=== PATIENT | female | born 1995 | race Hispanic/Latino ===

== ENCOUNTER 2018-04-14 23:56 | Emergency (ER) | payer MEDICAID, OTHER | END 2018-04-15 00:27 | disposition home or self-care (01) | LOC: EDH 23:56 | DX: M54.16 Radiculopathy, lumbar region (principal); L98.9 Disorder of the skin and subcutaneous tissue, unspecified; Z98.890 Other specified postprocedural states | CPT/HCPCS: 99281 ==

== ENCOUNTER 2018-10-22 00:08 | Emergency (ER) | payer MEDICAID, OTHER | END 2018-10-22 01:06 | disposition home or self-care (01) | LOC: EDH 00:08 | DX: O9A.212 Injury, poisoning and certain other consequences of external causes complicating pregnancy, second trimester (principal); S39.81XA Other specified injuries of abdomen, initial encounter; Z3A.15 15 weeks gestation of pregnancy; W01.0XXA Fall on same level from slipping, tripping and stumbling without subsequent striking against object, initial encounter; Y93.E5 Activity, floor mopping and cleaning; Y92.89 Other specified places as the place of occurrence of the external cause; Y99.8 Other external cause status | CPT/HCPCS: 99281 ==

== ENCOUNTER 2020-01-08 22:19 | Emergency (ER) | payer MEDICAID, OTHER ==
[2020-01-08 22:41] LABS: APPEARANCE,URINE Cloudy (CLEAR); BILIRUBIN,URINE Negative (NEGATIVE); COLOR,URINE Dark Yellow (YELLOW); GLUCOSE, URINE (UA) Negative (NEGATIVE); KETONES,URINE Trace mg/dL (NEGATIVE); LEUKOCYTE ESTERASE ,URINE Moderate (NEGATIVE); NITRATE,URINE Negative (NEGATIVE); OCCULT BLOOD,URINE Large (NEGATIVE); PROTEIN,URINE >=1000 mg/dL (NEGATIVE)
[2020-01-08 22:51] LABS: BACTERIA,URINE Few /HPF (None Seen); SQUAMOUS EPITHELIAL CELL,UR Moderate /HPF (0-2); WBC,URINE 26-50 /HPF (0-1)
[2020-01-08 22:52] LABS: MUCUS,URINE Few LPF (None Seen); RBC,URINE 51-100 /HPF (0-1)
[2020-01-08] MEDS ORDERED: ACETAMINOPHEN 325 MG TAB ONE (23:47)
[2020-01-09] MEDS ORDERED: CEFTRIAXONE SODIUM 500 MG VIAL ONE (00:45)
[2020-01-09] MEDS ORDERED: AZITHROMYCIN 250 MG TABLET PO ONE (00:45)
[2020-01-09] MEDS ORDERED: LIDOCAINE HCL-MPF 1% 2ML VIAL ONE (00:46)
== END 2020-01-09 01:33 | disposition home or self-care (01) ==
LOC: EDH 22:19
DX: N72 Inflammatory disease of cervix uteri (principal); N39.0 Urinary tract infection, site not specified; Z98.890 Other specified postprocedural states
CPT/HCPCS: 81001; 81025; 87077; 87088; 87186; 87210; 87486; 87797; 96372; 99283; J0696; J3490

== ENCOUNTER 2020-10-17 01:07 | Emergency (ER) | payer OTHER ==
[2020-10-17 02:20] LABS: APPEARANCE,URINE Clear (CLEAR); BILIRUBIN,URINE Negative (NEGATIVE); COLOR,URINE Yellow (YELLOW); GLUCOSE, URINE (UA) Negative (NEGATIVE); KETONES,URINE Negative (NEGATIVE); LEUKOCYTE ESTERASE ,URINE Trace (NEGATIVE); NITRATE,URINE Negative (NEGATIVE); OCCULT BLOOD,URINE Moderate (NEGATIVE); PROTEIN,URINE Negative (NEGATIVE)
[2020-10-17 02:23] LABS: HCG,QUAL RESULT NEGATIVE (NEGATIVE)
[2020-10-17 02:35] LABS: BACTERIA,URINE None Seen /HPF (None Seen); RBC,URINE None Seen /HPF (0-1); SQUAMOUS EPITHELIAL CELL,UR Moderate /HPF (0-2); WBC,URINE 0-1 /HPF (0-1)
[2020-10-18 18:09] LABS: CHLAMYDIA DNA N.A.AMPLIFY Negative (Negative)
== END 2020-10-17 03:46 | disposition home or self-care (01) ==
LOC: EDH 01:07
DX: N89.8 Other specified noninflammatory disorders of vagina (principal); N94.10 Unspecified dyspareunia; Z98.890 Other specified postprocedural states
CPT/HCPCS: 81001; 81025; 87210; 87486; 87797; 87880; 96372

== ENCOUNTER 2021-01-31 18:52 | Observation (INO) | payer MEDICAID, OTHER ==
[~2021-01-31] VITALS: Ht 172.7 cm; Wt 87.3 kg
[2021-01-31 22:59] LABS: BASOPHILS % (AUTO) 0.5 % (0.0-5.0); HEMATOCRIT 34.9 % (36-48); LYMPHOCYTES % (AUTO) 29.4 % (21.0-51.0); MEAN CORPUSCULAR HEMOGLOBIN 23.8 pg (27.0-33.0); MEAN CORPUSCULAR HGB CONC 30.7 g/dL (32.0-36.0); MEAN CORPUSCULAR VOLUME 77.6 fL (79-99); MONOCYTES % (AUTO) 6.7 % (3.0-13.0); NEUTROPHILS % (AUTO) 62.1 % (40.0-77.0); PLATELET COUNT (AUTO) 314 K/uL (130-400); RED CELL DISTRIBUTION WIDTH 16.5 % (11.0-15.5); WHITE BLOOD COUNT (AUTO) 9.4 K/uL (4.8-10.8)
[2021-01-31] MEDS ORDERED: CLINDAMYCIN 150 MG CAP PO ONE (23:00)
[2021-01-31] MEDS ORDERED: CLINDAMYCIN IVPB 600MG/50ML 50 ML IV ONE ×2 (23:00→23:36)
[2021-01-31] MEDS ORDERED: 0.9%NACL 1000ML 1,000 ML IV ONE ×2 (23:00→23:37)
[2021-01-31 23:06] LABS: CREATININE 0.6 mg/dL (0.5-1.5); POTASSIUM 3.6 mmol/L (3.5-5.1)
[2021-02-01] VITALS (17 sets, daily range): BP systolic 83–123; BP diastolic 34–84
[2021-02-01] MEDS ORDERED: ONDANSETRON 4MG INJ IVP PRN (07:30)
[2021-02-01] MEDS ORDERED: ACETAMINOPHEN 500 MG TABLET PO PRN (07:30)
[2021-02-01] MEDS: 0.9%NACL 1000ML 1,000 ML IV SCH ×2 (09:25→15:30)
[2021-02-01] MEDS: CLINDAMYCIN IVPB 600MG/50ML 50 ML IV SCH ×2 (09:26→16:14)
[2021-02-01] MEDS ORDERED: MIDAZOLAM HCL 1 MG/ML 2ML VIAL ONE (13:20)
[2021-02-01] MEDS ORDERED: PROPOFOL 10 MG/ML 20ML VIAL IV ONE ×2 (13:20→13:34)
[2021-02-01] MEDS ORDERED: FENTANYL CITRATE PF 50 MCG/1 ML 2ML VIAL ONE (13:20)
[2021-02-01] MEDS ORDERED: CEFAZOLIN SODIUM 1 GM VIAL ONE (13:30)
[2021-02-01] MEDS ORDERED: MEPERIDINE-PF 25 MG/ML SYG ONE (13:34)
[2021-02-01] MEDS ORDERED: SUCCINYLCHOLINE 200MG/10ML SYR ONE (13:49)
[2021-02-01] MEDS ORDERED: ONDANSETRON 4MG INJ ONE (13:49)
== END 2021-02-01 18:31 | disposition home or self-care (01) ==
LOC: EDH 18:52 → EDHIP 18:53 → 3CH 02-01 01:59
PROVIDERS: ADMIT Surgery Plastic and Reconstructive Surgery; ATTEND Surgery Plastic and Reconstructive Surgery
DX: S00.85XA Superficial foreign body of other part of head, initial encounter (principal); Z20.822 Contact with and (suspected) exposure to COVID-19; L03.211 Cellulitis of face; M79.5 Residual foreign body in soft tissue; W45.8XXA Other foreign body or object entering through skin, initial encounter; Y93.89 Activity, other specified; Y92.89 Other specified places as the place of occurrence of the external cause; Y99.8 Other external cause status
CPT/HCPCS: 10120; 36415 ×2; 70150; 80048; 84703; 85025; 87635; 96365; 96366 ×2; 99284; A6207; G0378 ×19; J0330; J0690; J2175; J2250; J2405; J3010; J3490 ×5; J7030 ×3; 96361; J2704

== ENCOUNTER 2021-06-18 00:06 | Emergency (ER) | payer MEDICAID ==
[~2021-06-18] VITALS: Ht 172.7 cm; Wt 83.0 kg
[2021-06-18 00:35] LABS: BILIRUBIN,URINE Negative (NEGATIVE); COLOR,URINE Yellow (YELLOW); GLUCOSE, URINE (UA) Negative (NEGATIVE); KETONES,URINE Negative (NEGATIVE); LEUKOCYTE ESTERASE ,URINE Negative (NEGATIVE); NITRATE,URINE Negative (NEGATIVE); OCCULT BLOOD,URINE Moderate (NEGATIVE); PROTEIN,URINE Negative (NEGATIVE)
[2021-06-18 00:46] LABS: APPEARANCE,URINE CLEAR (CLEAR)
[2021-06-18 00:47] LABS: BACTERIA,URINE None Seen /HPF (None Seen); WBC,URINE None Seen /HPF (0-1)
[2021-06-18 01:12] LABS: BASOPHILS % (AUTO) 0.5 % (0.0-5.0); HEMATOCRIT 36.1 % (36-48); LYMPHOCYTES % (AUTO) 33.4 % (21.0-51.0); MEAN CORPUSCULAR HEMOGLOBIN 24.8 pg (27.0-33.0); MEAN CORPUSCULAR HGB CONC 30.7 g/dL (32.0-36.0); MEAN CORPUSCULAR VOLUME 80.6 fL (79-99); MONOCYTES % (AUTO) 8.5 % (3.0-13.0); NEUTROPHILS % (AUTO) 56.5 % (40.0-77.0); PLATELET COUNT (AUTO) 277 K/uL (130-400); RED BLOOD CELL COUNT(AUTO) 4.48 MIL/uL (4.00-5.50); RED CELL DISTRIBUTION WIDTH 16.3 % (11.0-15.5); WHITE BLOOD COUNT (AUTO) 7.7 K/uL (4.8-10.8)
[2021-06-18 04:57] VITALS: BP 94/65
== END 2021-06-18 05:01 | disposition home or self-care (01) ==
LOC: EDH 00:06
DX: N93.8 Other specified abnormal uterine and vaginal bleeding (principal); R11.0 Nausea
CPT/HCPCS: 36415; 76801; 81001; 84702; 85025; 86900; 86901; 87210; 87486; 87797